=== PATIENT | female | born 1945 | race Caucasian/White ===

== ENCOUNTER 2016-11-23 16:49 | Emergency (ER) | payer MEDICARE ==
--- NOTE | 2016-11-23 17:10 | Emergency Department Record ---
History of Present Illness - General Chief complaint: Extremity Problem Stated complaint: CELULITUS ON RTLEG Time Seen by Provider: 11/23/16 17:08 Source: Patient Mode of Arrival: Ambulatory Limitations: No limitations - History of Present Illness Initial comments: The patient is here due to a foot and leg infection for the last 2 weeks. She developed a wound to the top of the R 1st toe and it became infected while in [place]. She was seen by a doctor there and was started on Keflex. Now the patient states the toe wound is much worse and the foot is more swollen with increasing redness to the lower leg. There has not been any fever recently. MD Complaint: Extremity pain Onset/Timin -: Week(s) Location: Right, Foot History of Same: Yes -: Yes Fever Radiation: None - Related Data Home Medications Medication Instructions Recorded Confirmed Last Taken Aspirin [Aspirin EC] 81 mg PO DAILY 02/05/15 11/23/16 11/23/16 Bumetanide [Bumetanide] 2 mg PO BID 02/05/15 11/23/16 11/23/16 Carvedilol [Carvedilol] 6.25 mg PO QHS 02/05/15 11/23/16 11/23/16 Digoxin [Digox] 0.125 mg PO QHS 02/05/15 11/23/16 11/23/16 Glimepiride [Amaryl] 4 mg PO DAILY 02/05/15 11/23/16 11/23/16 Insulin Glargine,Hum.rec.anlog 70 unit SQ QHS 02/05/15 11/23/16 11/23/16 [Lantus Solostar] Insulin Lispro [Humalog] 10 unit SQ WMEALS 02/05/15 11/23/16 11/23/16 Isosorbide Mononitrate [Imdur] 30 mg PO QHS 02/05/15 11/23/16 11/23/16 Lisinopril [Lisinopril] 2.5 mg PO QHS 02/05/15 11/23/16 11/23/16 Nitroglycerin [Nitrostat] 0.4 mg SL ASDIR PRN 02/05/15 11/23/16 11/23/16 Ranitidine HCl [Zantac] 150 mg PO BID 02/05/15 11/23/16 11/23/16 Spironolactone [Aldactone] 25 mg PO BID 02/05/15 11/23/16 11/23/16 Pravastatin Sodium 40 mg PO QD tab 01/29/16 11/23/16 11/23/16 Fluoxetine HCl [Prozac] 50 mg PO DAILY 11/23/16 11/23/16 11/23/16 Allergies Allergy/AdvReac Type Severity Reaction Status Date / Time No Known Drug Allergies Allergy Verified 11/23/16 16:52 Review of Systems Constitutional: Denies: Chills, Fever Eyes: Denies: Eye discharge ENT: Denies: Congestion Respiratory: Denies: Cough, Dyspnea Past Medical History - SOCIAL HISTORY Smoking Status: Former smoker - RESPIRATORY Hx Respiratory Disorders: No - CARDIOVASCULAR Hx Cardio Disorders: Yes Hx Cardiac Cath: Yes Hx CHF: Yes Hx Heart Attack: Yes Hx Hypotension: Yes - NEURO Hx Neuro Disorders: No - GI Hx GI Disorders: No - Hx Genitourinary Disorders: No - ENDOCRINE Hx Endocrine Disorders: Yes Hx Diabetes: Yes - MUSCULOSKELETAL Hx Musculoskeletal Disorders: Yes Hx Arthritis: Yes - PSYCH Hx Psych Problems: No - HEMATOLOGY/ONCOLOGY Hx Hematology/Oncology Disorders: No Family Medical History Hx Cancer: Children Physical Exam - General General Appearance: Alert, Oriented x3, Cooperative, No acute distress - Head Head exam: Atraumatic, Normocephalic, Normal inspection - Eye Eye exam: Normal appearance, PERRL - Neck Neck exam: Normal inspection, Full ROM. negative: Tenderness - Respiratory Respiratory exam: Normal lung sounds bilaterally. negative: Respiratory distress - Cardiovascular Cardiovascular Exam: Regular rate, Normal rhythm, Normal heart sounds - Extremities Extremities exam: Tenderness, Other (The R foot is mildly edematous with erythema present extending to the distal lower leg.). negative: Normal inspection (There is a draining wound to the R 1st toe dorsally. ), Full ROM - Neurological Neurological exam: Alert, Normal gait. negative: Abnormal gait, Motor sensory deficit Course Vital Signs 11/23/16 16:58 Temperature 98.0 F Pulse Rate [ 82 Pulse Ox Probe] Respiratory 16 Rate Blood Pressure 119/66 [Left Arm] Pulse Ox 98 - Reevaluation(s) Reevaluation #1: The patient is doing well here. I did discuss the problem with the wound and infection with her and did discuss the very high probability of Osteomyelitis to the toe. Due to that fact I did consult with Dr. Antonio Philippe (Podiatry) and he states he would be able to see her in Consultation at [facility] and does not believe he can do it here at [facility]. I discussed this with the patient and she states she prefers to go to [facility] also. 11/23/16 18:32 Reevaluation #2: I did discuss the need for transfer again with the patient and did recommend an ambulance but the patient is refusing. She understands the risks of traveling by her own car and accepts the risks. 11/23/16 18:35 Reevaluation #3: I did discuss the case with Dr. Manning at [facility] and she does accept the patient to the hospital there for D. Service. 11/23/16 18:43 Medical Decision Making - Data Complexity MDM Data: Labs Ordered and/or Reviewed, X-Ray Ordered and/or Reviewed - Lab Data Result diagrams: 11/23/16 17:33 11/23/16 17:33 - Radiology Data Radiology results: Report reviewed (R foot: Bony abnormality at the R 1st toe DIP joint. Prob Osteomyelitis.) Disposition Disposition: Transfer Clinical Impression: Cellulitis of foot Disposition: Acute Care Hospital Transfer Transfer To: [facility] Reason For Transfer: Osteomyelitis Accepting Physician: Giuseppe Time Discussed w/Accepting Physician: 18:34 Condition: (2) Stable Forms: Patient Portal Access Time of Disposition: 18:34
[2016-11-23 17:41] LABS: HEMATOCRIT 41.4 % (35.0-47.0); HEMOGLOBIN 13.2 gm/dl (11.6-16.0); MEAN CELL VOLUME 84.7 fl (81-97); MEAN CORPUSCULAR HGB CONC 31.9 g/dl (32-36); MEAN PLATELET VOLUME 10.7 fl (7.4-10.4); PLATELET COUNT 268 K/uL (130-400); RED BLOOD COUNT 4.89 M/uL (3.80-5.40); WHITE BLOOD COUNT W/O DIFF 8.3 K/uL (4.2-12.2)
[2016-11-23 17:54] LABS: ANION GAP 11.7 (7-16); C-REACTIVE PROTEIN 1.1 mg/dL (0.0-0.9); CARBON DIOXIDE 22.3 mmol/L (22-30); CREATININE 1.2 mg/dL (0.52-1.04)
[2016-11-23 17:57] LABS: PLATELET ESTIMATE NORMAL (NORMAL)
[2016-11-23] MEDS ORDERED: CLINDAMYCIN 600MG/50ML PREMIX 600 MG in DEXTROSE 1 BAG IV ONE (18:08)
[2016-11-23 18:34] LABS: ERYTHROCYTE SEDIMENTATION RATE 44 mm/hr (0-30)
--- NOTE | 2016-11-26 14:52 | RADIOLOGY REPORT ---
EXAM: RIGHT FOOT, THREE VIEWS HISTORY: PATIENT HAS A DIABETIC ULCER WITHIN THE FIRST DIGIT. TECHNIQUE: Three views of the right foot were provided along with the comparison study dated 03/16/13. 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 This finding is unchanged with respect to the prior examination. Accessory ossicle is noted lateral to the base of the fifth metatarsal. Mild to moderate neuropathic degeneration is noted at the tarsal metatarsal articulation. There is central erosion of the base of the distal right first phalanx and destruction of the distal epiphysis of the proximal right first phalanx at the interphalangeal joint. The margins of this cortical destruction appear well defined suggesting that this likely represents neuropathic degeneration. The cortical destruction does not appear moth eaten or permeative that is typical for osteomyelitis, however, osteomyelitis cannot be entirely excluded. If there is clinical concern for osteomyelitis, then an MRI of the right foot can be obtained for further evaluation. Soft tissue swelling is noted over the dorsum of the right foot as well as over the right first digit. 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 SOFT TISSUE SWELLING IS NOTED OVER THE RIGHT FIRST DIGIT. OSTEOMYELITIS CANNOT BE ENTIRELY EXCLUDED. IF THERE IS FURTHER CLINICAL CONCERN THEN AN MRI OF THE RIGHT FOOT CAN BE OBTAINED FOR FURTHER EVALUATION. JOB NUMBER: [id number] MTDD
== END 2016-11-23 19:17 | disposition short-term general hospital (02) ==
LOC: ER 16:49
DX: E11.628 Type 2 diabetes mellitus with other skin complications (principal); L03.031 Cellulitis of right toe; Z79.4 Long term (current) use of insulin; I10 Essential (primary) hypertension; I25.2 Old myocardial infarction; Z87.891 Personal history of nicotine dependence
CPT/HCPCS: 80048; 85027; 85651; 86140; 96365; 99285

== ENCOUNTER 2017-05-09 20:57 | Emergency (ER) | payer MEDICARE ==
--- NOTE | 2017-05-09 21:25 | Emergency Department Record ---
History of Present Illness - General Chief complaint: Extremity Problem Stated complaint: L ARM PAIN/GOING INTO THE NECK Time Seen by Provider: 05/09/17 21:24 Source: Patient Mode of Arrival: Ambulatory Limitations: No limitations - History of Present Illness Initial comments: The patient is here due to waking up this AM with L elbow pain. The pain is now radiating up and down the arm. She denies any trauma or injury and ROM of the elbow does increase the pain. She also denies any CP, SOB, or MARICRUZ and denies that this pain could be her heart. MD Complaint: Extremity pain Onset/Timin -: Hour(s) Location: Left, Arm, Elbow, Shoulder History of Same: No Radiation: Proximal, Distal Severity scale (1-10): 8 Quality: Aching, Burning Consistency: Constant, Getting worse Improves with: Nothing Worsens with: Exertion Associated Symptoms: Denies other symptoms - Related Data Home Medications Medication Instructions Recorded Confirmed Last Taken Aspirin [Aspirin EC] 81 mg PO DAILY 02/05/15 05/09/17 11/23/16 Bumetanide [Bumetanide] 2 mg PO BID 02/05/15 05/09/17 11/23/16 Carvedilol [Carvedilol] 6.25 mg PO QHS 02/05/15 05/09/17 11/23/16 Digoxin [Digox] 0.125 mg PO QHS 02/05/15 05/09/17 11/23/16 Glimepiride [Amaryl] 4 mg PO DAILY 02/05/15 05/09/17 11/23/16 Insulin Glargine,Hum.rec.anlog 70 unit SQ QHS 02/05/15 05/09/17 11/23/16 [Lantus Solostar] Insulin Lispro [Humalog] 10 unit SQ WMEALS 02/05/15 05/09/17 11/23/16 Isosorbide Mononitrate [Imdur] 30 mg PO QHS 02/05/15 05/09/17 11/23/16 Lisinopril [Lisinopril] 2.5 mg PO QHS 02/05/15 05/09/17 11/23/16 Nitroglycerin [Nitrostat] 0.4 mg SL ASDIR PRN 02/05/15 05/09/17 11/23/16 Ranitidine HCl [Zantac] 150 mg PO BID 02/05/15 05/09/17 11/23/16 Spironolactone [Aldactone] 25 mg PO BID 02/05/15 05/09/17 11/23/16 Pravastatin Sodium 40 mg PO QD tab 01/29/16 05/09/17 11/23/16 Fluoxetine HCl [Prozac] 50 mg PO DAILY 11/23/16 05/09/17 11/23/16 Previous Rx's Medication Instructions Recorded Acetaminop W/ Codeine 300/30Mg 1 tab PO Q6H #20 tab 05/09/17 [Tylenol #3] Allergies Allergy/AdvReac Type Severity Reaction Status Date / Time No Known Drug Allergies Allergy Verified 05/09/17 21:04 Travel Screening - Travel/Exposure Within Last 30 Days Have you traveled within the last 30 days?: No - Travel/Exposure Within Last Year Have you traveled outside the [place] in the last year?: No - Additonal Travel Details Have you been exposed to anyone with a communicable illness?: No - Travel Symptoms Symptom Screening: None Review of Systems Constitutional: Denies: Chills, Fever, Malaise Eyes: Denies: Eye discharge ENT: Denies: Congestion Respiratory: Denies: Cough, Dyspnea Cardiovascular: Denies: Chest pain Past Medical History - SOCIAL HISTORY Smoking Status: Current every day smoker Alcohol Use: None Drug Use: None - RESPIRATORY Hx Respiratory Disorders: No - CARDIOVASCULAR Hx Cardio Disorders: Yes Hx Cardiac Cath: Yes Hx CHF: Yes Hx Heart Attack: Yes Hx Hypotension: Yes - NEURO Hx Neuro Disorders: No - GI Hx GI Disorders: No - Hx Genitourinary Disorders: No - ENDOCRINE Hx Endocrine Disorders: Yes Hx Diabetes: Yes - MUSCULOSKELETAL Hx Musculoskeletal Disorders: Yes Hx Arthritis: Yes - PSYCH Hx Psych Problems: No - HEMATOLOGY/ONCOLOGY Hx Hematology/Oncology Disorders: No Family Medical History Any Significant Family History?: No Hx Cancer: Children Physical Exam - General General Appearance: Alert, Oriented x3, Cooperative, No acute distress - Head Head exam: Atraumatic, Normocephalic, Normal inspection - Eye Eye exam: Normal appearance, PERRL - Neck Neck exam: Normal inspection, Full ROM. negative: Tenderness - Respiratory Respiratory exam: Normal lung sounds bilaterally. negative: Respiratory distress - Cardiovascular Cardiovascular Exam: Regular rate, Normal rhythm, Normal heart sounds - GI/Abdominal GI/Abdominal exam: Soft, Normal bowel sounds. negative: Tenderness - Extremities Extremities exam: Normal inspection (There is no swelling, erythema or edema to the L elbow.), Full ROM (with pain on ROM of the L elbow.), Tenderness (There is exquisite tenderness to the L posterior elbow to palpation which reproduces the pain 100%.). negative: Joint swelling - Neurological Neurological exam: Alert, Normal gait. negative: Abnormal gait, Motor sensory deficit Course Vital Signs 05/09/17 21:04 Temperature 97.9 F Pulse Rate 91 H Respiratory 20 Rate Blood Pressure 123/62 Pulse Ox 98 - Reevaluation(s) Reevaluation #1: I did discuss the issues with the patient and the normal xray and lab work. Due to not knowing exactly what is causing the pain we will discharge her on Tylenol # 3 and an arm sling. She is to see her PCP early next week for recheck. 05/09/17 22:56 Medical Decision Making - Data Complexity MDM Data: Labs Ordered and/or Reviewed, X-Ray Ordered and/or Reviewed, EKG Ordered and/or Reviewed - Lab Data Result diagrams: 05/09/17 22:10 05/09/17 22:10 - EKG Data -: EKG Interpreted by Me EKG: No Acute Changes (NSR at 88, Neg ST-T changes and neg for any ischemia.) - Radiology Data Radiology results: Report reviewed (L elbow: Neg per Rad.) Disposition Disposition: Discharge Clinical Impression: Elbow pain, left Disposition: Home, Self-Care Condition: (1) Good Instructions: Arthralgia (ED) Additional Instructions: Please use the Tylenol # 3 for pain and ice the elbow when possible for 2 days. Use the L arm sling for 5 days. Please see your PCP early next week for recheck. Return to the ER if worse. Prescriptions: Acetaminop W/ Codeine 300/30Mg [Tylenol #3] 1 tab PO Q6H #20 tab Forms: Patient Portal Access Time of Disposition: 22:58
[2017-05-09 22:21] LABS: BASO % 0.3 % (0-6); EOS % 1.5 % (0-6); HEMATOCRIT 42.1 % (35.0-47.0); HEMOGLOBIN 13.4 gm/dl (11.6-16.0); LYMPH % 13.5 % (16-45); MEAN CELL VOLUME 89.6 fl (81-97); MEAN CORPUSCULAR HEMOGLOBIN 28.5 pg (27-33); MEAN CORPUSCULAR HGB CONC 31.8 g/dl (32-36); MEAN PLATELET VOLUME 10.8 fl (7.4-10.4); MONO % 8.7 % (0-9); PLATELET COUNT 237 K/uL (130-400); RED CELL DISTRIBUTION WIDTH 17.2 % (11.5-14.5); WHITE BLOOD COUNT W/O DIFF 11.5 K/uL (4.2-12.2)
[2017-05-09 22:34] LABS: ANION GAP 12.2 (7-16); C-REACTIVE PROTEIN 1.7 mg/dL (0.0-0.9); CARBON DIOXIDE 28.8 mmol/L (22-30); CREATININE 1.2 mg/dL (0.52-1.04)
[2017-05-09 22:43] LABS: CKMB 1.4 ug/L (0-6); TROPONIN I 0.021 ng/mL (0.00-0.034)
[2017-05-09] MEDS ORDERED: POTASSIUM CHLORIDE 20 MEQ TABLET PO ONE (22:47)
[2017-05-09] MEDS ORDERED: ACETAMINOPHEN W/ CODEINE 300MG/30MG TABLET PO ONE (22:55)
--- NOTE | 2017-05-10 12:07 | RADIOLOGY REPORT ---
DATE: 05/09/2017. EXAM: LEFT ELBOW. HISTORY: Pain. TECHNIQUE: Three views of the left elbow were performed. FINDINGS: No evidence of fracture or dislocation. No lytic or blastic lesion. IMPRESSION: NEGATIVE LEFT ELBOW EXAMINATION. JOB NUMBER: [id number] MTDD
== END 2017-05-09 23:20 | disposition home or self-care (01) ==
LOC: ER 20:57
DX: M25.522 Pain in left elbow (principal); I50.9 Heart failure, unspecified; I25.2 Old myocardial infarction; E11.9 Type 2 diabetes mellitus without complications; Z79.4 Long term (current) use of insulin; I95.9 Hypotension, unspecified
CPT/HCPCS: 80048; 82550; 82553; 84484; 84550; 85025; 86140; 93005; 93010; 99284